=== PATIENT | female | born 1970 | race Caucasian/White ===

== ENCOUNTER 2020-06-08 15:32 | Inpatient (IN) | payer MEDICAID, OTHER ==
[~2020-06-08] VITALS: Ht 162.6 cm; Wt 99.8 kg
--- NOTE | 2020-06-08 15:55 | NUR ---
BIB FROM [facility] TO BED BED 7. AAOX4. NOT IN RESP DISTRESS, BREATHING EVEN AND UNLABORED. BROUGHT IN FOR WEAKNESS. NO NEURO DEFICIT NOTED. PER EMS, PT IS ON HOSPICE. AWAITING MD FOR EVAL.
--- NOTE | 2020-06-08 16:27 | NUR ---
SPOKE WITH SAM, CAREGIVER AT THE [facility] BUT UNABLE TO GIVEN ANY INFORMATION BECAUSE SHE WAS JUST A RELIEF CAREGIVER AND DOES NOT KNOWN WHAT IS GOING ON BECAUSE THE HOSPICE NURSE IS THE ONE WHO SPOKE WITH THE INTAKE COUNSELOR. ALSO CALLED AND SPOKE WITH THE KUSH AND VERBALIZED THAT SHE DID NOT KNOW THAT HER MOTHER IS BEING ADMITTED TO HOSPICE. DAUGHTER WANT FULL TREATMENT FOR HER MOTHER.
--- NOTE | 2020-06-08 16:28 | NUR ---
CAL JACKSON (AIDEEMIAH) [phone]
--- NOTE | 2020-06-08 16:28 | NUR ---
SPOKE WITH DEEPIKA OVER THER PHONE
--- NOTE | 2020-06-08 16:52 | NUR ---
PT TO CT ON SUKHJINDER
[2020-06-08] MEDS ORDERED: IV NS 0.9% 1,000 ML BAG IV ONE (17:00)
[2020-06-08 18:12] LABS: BASOPHILS % (AUTO) 0.6 % (0.0-2.0); EOSINOPHILS % (AUTO) 0.2 % (0.0-6.0); LYMPHOCYTES # (AUTO) 0.6 /CMM (0.8-4.8); LYMPHOCYTES % (AUTO) 19.9 % (20.0-44.0); MEAN CORPUSCULAR HGB CONC 33 g/dl (31.0-36.0); MEAN CORPUSCULAR VOLUME 76 fL (82-100); MONOCYTES # (AUTO) 0.1 /CMM (0.1-1.30); MONOCYTES % (AUTO) 2.2 % (2.0-12.0); NEUTROPHILS # (AUTO) 2.3 /CMM (1.8-8.9); NEUTROPHILS % (AUTO) 77.1 % (43.0-81.0); PLATELET COUNT (AUTO) 178 /CMM (150-450); RED BLOOD CELL COUNT(AUTO) 1.06 MIL/uL (4.0-5.2)
[2020-06-08 18:16] LABS: HEMATOCRIT 8 % (33-45); HEMOGLOBIN 2.6 g/dL (11.5-14.8)
--- NOTE | 2020-06-08 18:20 | NUR ---
pt verbalized that she feel short of breath. o2 sat noted @ 98%. placed on 02 via nc @ 2lpm for hgd 2.6
[2020-06-08 18:23] LABS: CALCIUM, SERUM 8.2 mg/dL (8.5-10.1); CARBON DIOXIDE 22 mmol/L (21-32); CHLORIDE 100 mmol/L (98-107); CREATININE 1.3 mg/dL (0.6-1.3); GLUCOSE 215 mg/dL (74-106); SODIUM SERUM 134 mmol/L (136-145); UREA NITROGEN, BLOOD 20 mg/dL (7-18)
[2020-06-08 18:33] LABS: ALANINE AMINOTRANSFERASE 19 U/L (12-78); ALBUMIN 2.2 g/dL (3.4-5.0); ALKALINE PHOSPHATASE 83 U/L (46-116); ASPARTATE AMINOTRANSFERASE 25 U/L (15-37); BILIRUBIN,DIRECT 0.1 mg/dL (0.0-0.2); BILIRUBIN,TOTAL 0.1 mg/dL (0.2-1.0); TOTAL PROTEIN, SERUM 6.6 g/dL (6.4-8.2)
--- NOTE | 2020-06-08 19:03 | NUR ---
PER PT DOESNT RECALL HER MEDICATIONS, CALLED [facility] [phone] LEFT VOICEMAIL, PER PT SHE LIVES IN A [facility] AND CARE AT [address] [place] [address]
[2020-06-08] MEDS ORDERED: PIPERACILLIN /TAZOBACTAM 3.375 G in IV D5W 50 ML IV ONE (19:30)
[2020-06-08] MEDS ORDERED: PIPERACILLIN /TAZOBACTAM 3.375 G VIAL IV ONE (19:56)
--- NOTE | 2020-06-08 20:11 | NUR ---
covid swab done and send to lab
--- NOTE | 2020-06-08 20:18 | NUR ---
consent for blood transfusion obtained from pt
[2020-06-08] MEDS ORDERED: MAGNESIUM HYDROXIDE 30 ML UDC PO PRN (21:00)
[2020-06-08] MEDS ORDERED: ONDANSETRON HCL/PF 4 MG/2 ML VIAL IVP PRN (21:00)
[2020-06-08] MEDS ORDERED: Z GUARD REMEDY 2 OZ OINT TP PRN (21:00)
[2020-06-08] MEDS ORDERED: ZOLPIDEM TARTRATE 5 MG TABLET PO PRN (21:00)
[2020-06-08 21:34] LABS: LYMPHOCYTES % (MANUAL) 19 % (16-48); MONOCYTES % (MANUAL) 1 % (0-11.0); NEUTROPHILS % (MANUAL) 80 (42-76)
--- NOTE | 2020-06-08 22:03 | NUR ---
BLOOD TRANSFUSION STARTED
--- NOTE | 2020-06-08 22:58 | NUR ---
report given to MARY Beasley for carlos
[2020-06-08 23:00] VITALS: BP 130/70
--- NOTE | 2020-06-08 23:00 | NUR ---
HIV COUNSELORDENTAL LAB TECHNICIAN NOTE ADMITTED A PT WITH ADMITTING DIAGNOSIS OF ACUTE ANEMIA. PAST MEDICAL HISTORY OF HTN, UNSPECIFIED PSYCHIATRIC DISORDER, OVARIAN CANCER AND CURRENTLY ON CHEMO THERAPY. PT PATIENT LAST TREATMENT WAS Friday06/02/2020. FULL CODE STATUS. NKDA. ALERT AND ORIENTED X4. BREATHING EVEN AND UNLABORED WITH NO ACUTE DISTRESS NOTED ON 2LPM OF OXYGEN VIA NC. DENIES ANY PAIN OR DISCOMFORT. LEFT AC 18G NOTED . RECEIVED PT FROM ER WITH 1UNIT OF BLOOD O POSITIVE INFUSING. NO ASE NOTED. BELONGINGS INVENTORY COMPLETED. KEPT CLEAN AND DRY. ALL NEEDS RENDERED. CALL LIGHT WITHIN REACH. WILL CONTINUE TO MONITOR.
--- NOTE | 2020-06-08 23:05 | NUR ---
pt transported to unit on gurney with EMT and RN at bedside w/ ACLS protocol. NAD noted during transport.
--- NOTE | 2020-06-08 23:20 | NUR ---
record label intern note 1 unit of blood infused. pt awake a/o x3. breathing even and unlabored no sob or acute distress noted. denies any pain or discomfort. will continue to monitor.
[2020-06-09] VITALS (30 sets, daily range): BP systolic 100–132; BP diastolic 52–88
--- NOTE | 2020-06-09 02:01 | NUR ---
public safety telecommunicator note report given to ning. pt in bed sleeping . breathing even and unlabored with no sob or acute distress noted. bed in lowest position. call light within reach. all needs rendered.
--- NOTE | 2020-06-09 03:20 | NUR ---
RN NOTE BLOOD TRANSFUSION STARTED. WLLL CONT. TO MONITOR PT.
[2020-06-09] MEDS: MAG HYDROX/AL HYDROX/SIMETH 30 ML UDC PO PRN (04:13)
[2020-06-09] MEDS: ACETAMINOPHEN 325 MG TABLET PO PRN (04:14)
--- NOTE | 2020-06-09 07:26 | NUR ---
RN NOTES STARTED BLOOD TRANSFUSION
--- NOTE | 2020-06-09 08:00 | NUR ---
RN OPENING NOTE RECEIVED PT IN BED . PT PATIENT LAST TREATMENT OF CANCER WAS Friday06/02/2020. FULL CODE STATUS. NKDA. ALERT AND ORIENTED X4. BREATHING EVEN AND UNLABORED WITH NO ACUTE DISTRESS NOTED ON 2LPM OF OXYGEN VIA NC. DENIES ANY PAIN OR DISCOMFORT. LEFT AC 18G NOTED INTACT, NO S/S OF INFILTRATION AND INFECTION NOTED .RECEIVED ORDER OF BLOOD UNIT 1.SAFETY MEASUREMENTS ARE IMPLEMENTED PER HOSPITAL POLICY. BED IS IN THE LOWEST POSITION. CALL LIGHT WITHIN REACH. WILL CONTINUE TO MONITOR.
--- NOTE | 2020-06-09 08:00 | NUR ---
RN NOTES NO TRANSFUSION REACTION VS WNL
--- NOTE | 2020-06-09 12:00 | NUR ---
RN NOTES PT IS IN PAIN IN THE LOWER ABD. GAVE HER NORCO
[2020-06-09] MEDS ORDERED: COGENTIN PO (12:05)
[2020-06-09] MEDS ORDERED: IBUP-1953 PO (12:05)
[2020-06-09] MEDS ORDERED: DOCU-141 PO (12:05)
[2020-06-09] MEDS ORDERED: QUET400T PO (12:05)
[2020-06-09] MEDS ORDERED: APIX5TAB4 PO (12:05)
[2020-06-09] MEDS: HYDROCODONE/APAP 5/325MG TABLET PO PRN ×2 (12:06→22:59)
[2020-06-09 12:38] LABS: HEMOGLOBIN 6.2 g/dL (11.5-14.8)
[2020-06-09 12:42] LABS: CALCIUM, SERUM 8.1 mg/dL (8.5-10.1); CREATININE 1.2 mg/dL (0.6-1.3); MAGNESIUM 2.2 mg/dL (1.8-2.4); PHOSPHORUS 3.1 mg/dL (2.5-4.9); POTASSIUM 3.6 mmol/L (3.5-5.1)
[2020-06-09 12:43] LABS: IRON, SERUM 19 ug/dl (50-175); TOTAL IRON BINDING CAPACITY 238 ug/dl (250-450)
--- NOTE | 2020-06-09 12:45 | NUR ---
RN NOTES DR ORDER ANOTHER 1 UNIT OF BLOOD
[2020-06-09 12:48] LABS: BASOPHILS % (AUTO) 0.4 % (0.0-2.0); EOSINOPHILS % (AUTO) 0.7 % (0.0-6.0); LYMPHOCYTES # (AUTO) 0.8 /CMM (0.8-4.8); LYMPHOCYTES % (AUTO) 22.4 % (20.0-44.0); MEAN CORPUSCULAR HGB CONC 34 g/dl (31.0-36.0); MEAN CORPUSCULAR VOLUME 86 fL (82-100); MONOCYTES # (AUTO) 0.1 /CMM (0.1-1.30); MONOCYTES % (AUTO) 3.3 % (2.0-12.0); NEUTROPHILS # (AUTO) 2.6 /CMM (1.8-8.9); NEUTROPHILS % (AUTO) 73.2 % (43.0-81.0); PLATELET COUNT (AUTO) 212 /CMM (150-450); RED BLOOD CELL COUNT(AUTO) 2.19 MIL/uL (4.0-5.2); WHITE BLOOD COUNT (AUTO) 3.6 K/uL (4.3-11.0)
--- NOTE | 2020-06-09 12:48 | NUR ---
RN NOTES DOC ORDERED DILAUDID 1MG IV Q4 HRS
--- NOTE | 2020-06-09 12:48 | NUR ---
RN NOTES PT IS STILL IN PAIN INFORMED DOC
--- NOTE | 2020-06-09 12:49 | NUR ---
RN NOTES NOTED BLOOD IN THE STOOL
[2020-06-09 12:50] LABS: HEMATOCRIT 19 % (33-45); HEMOGLOBIN 6.3 g/dL (11.5-14.8)
[2020-06-09 12:58] LABS: FERRITIN 70 ng/mL (8-388)
[2020-06-09] MEDS ORDERED: INFLUENZA VACCINE 2020-21 0.5 ML DISP.SYRIN IM ONE (13:00)
[2020-06-09] MEDS ORDERED: PNEUMOCOCCAL 23-VAL P-SAC VAC 0.5 ML VIAL SQ ONE (13:00)
[2020-06-09 13:03] LABS: D-DIMER 20.13 mg/L(FEU (0.17-0.50)
[2020-06-09] MEDS: HYDROMORPHONE 1 MG/1 ML DISP.SYRIN IV PRN (13:24)
[2020-06-09 13:44] LABS: LYMPHOCYTES % (MANUAL) 26 % (16-48); MONOCYTES % (MANUAL) 1 % (0-11.0); NEUTROPHILS % (MANUAL) 73 (42-76)
--- NOTE | 2020-06-09 14:06 | NUR ---
SW was contacted by Operator Electronic Warfare MARY Medina for a family welfare social work professor consult to help assist in finding placement for this patient. Patient is a 50-year-old female. Patient is alert and oriented x4. Patient presented to [facility] ED on 06/08 for weakness. Patient is currently on COVID precautions. SW conducted assessment via hospital phone. Patient confirmed that she is from a board and care. Patient reported that she had been at a senior living facility prior to the board and care. Patient reported that she is currently receiving $1,000 a month in social security income. Patient reported that she was in pain and asked this SW to call back if this SW had more questions. SW will follow-up with this patient at a later time. Patient was calm and cooperative throughout assessment. Patients thought process was clear. Patient had some slurred speech and needed redirection. Plan: SW to check with MARY Ahmadi if patient reported a lower pain level for this SW to complete SS assessment. SW to inform Operator Electronic Warfare MARY Medina that this SW could not complete SS assessment and provide information patient did report. SW will remain available for all needs regarding this patient.
--- NOTE | 2020-06-09 14:30 | NUR ---
RN NOTES PICKED UP BLOOD,VERIFYING WITH THE SECOND NURSE
--- NOTE | 2020-06-09 15:00 | NUR ---
RN NOTES PT HAS NO BLOOD TRANSFUSING REACTION.
--- NOTE | 2020-06-09 16:30 | NUR ---
RN NOTES PT IS NEGATIVE COVID NEGATIVE NEEDS TO BE TRANSFER TO [facility] BED 322 BED 1
--- NOTE | 2020-06-09 16:50 | NUR ---
RN NOTES PT TRANSPORTED BY BED TO UNIT AT THIS TIME WITH ACLS PROTOCOL IN PLACE AND ONGOING BLOOD TRANSFUSION. BEDSIDE REPORT RECEIVED WAS GIVEN TO TAMI
--- NOTE | 2020-06-09 16:50 | NUR ---
RN NOTES GAVE REPORT TO EMAKUELET ON THE BED SITE
--- NOTE | 2020-06-09 17:00 | NUR ---
PT TRANSPORTED BY BED TO UNIT AT THIS TIME WITH ACLS PROTOCOL IN PLACE AND ONGOING BLOOD TRANSFUSION. BEDSIDE REPORT RECEIVED FROM MARY MARTINEZ. WILL CONTINUE TO MONITOR
--- NOTE | 2020-06-09 18:01 | NUR ---
PT ONGOING BLOOD TRANSFUSION. VS SIGNS, BP 123/68, HR 70, RR 20, T 98.2, SPO2 98%. PT EDUCATION PROVIDED TO REPORT ADVERSE REACTIONS OF TRANSFUSION LIKE BACK PAIN, CHILLS, HIVES, ITCHES AND FEVER. NO C/O OF ANY TRANSFUSION REACTION AT THIS TIME. WILL CONTINUE TO MONITOR
--- NOTE | 2020-06-09 18:03 | NUR ---
BLOOD TRANSFUSION COMPLETED AT THIS TIME. VS SIGNS, BP 115/65, HR 63, RR 18, T 97.92, SPO2 96%. NO C/O OF ANY TRANSFUSION REACTION (BACK PAIN, CHILLS, HIVES, ITCHES AND FEVER) AT THIS TIME. WILL CONTINUE TO MONITOR
--- NOTE | 2020-06-09 19:19 | NUR ---
MESH MAN CLOSING NOTES PT RESTING IN BED AT THIS. PT REMAINED STABLE THROUGHOUT SHIFT. PT KEPT CLEAN AND DRY. ALL CARE, NEEDS, MEDICATION AND TREATMENT ADMINISTERED ANTICIPATED PER ORDER. SAFETY PRECAUTION IN PLACE AND MAINTAINED AT ALL TIMES. BED IN LOWEST LOCKED POSITION, HOB ELEVATED, SIDE RAILS UP X 2, CALL LIGHT AND TABLE WITHIN REACH. WILL ENDORSE TO SCRIPT WORKER NURSE FOR DOMINGO
--- NOTE | 2020-06-09 19:41 | NUR ---
RN OPENING NOTES PATIENT RECEIVED RESTING IN BED, A/O X 3. ON 2L OF O2 WITH BREATHING EVEN AND UNLABORED, NO SOB NOTED. NO SIGNS OF ACUTE DISTRESS. TELE MONITOR READING SR WITH PVC'S. IV LOCATED ON LAC #18 SL PATENT AN INTACT. SAFETY PRECAUTIONS IN PLACE WITH BED IN LOWEST POSITION, CALL LIGHT WITHIN REACH, BREAKS ON, SIDE RAILS UP. WILL CONTINUE TO MONITOR THROUGHOUT THE NIGHT.
[2020-06-09 20:39] LABS: HEMOGLOBIN 6.9 g/dL (11.5-14.8)
--- NOTE | 2020-06-09 21:03 | NUR ---
RN NOTES NOTIFIED ELECTRONIC PUBLICATIONS SPECIALIST YANN ON PATIENTS HGB OF 6.9 AND HCT 21- TRENDING TOWARDS GOAL. ORDERED FOR H&H AFTER ONE HOUR OF TRANSFUSION FOR GOAL TO BE <8.
--- NOTE | 2020-06-09 23:02 | NUR ---
RN NOTES PATIENT COMPLAINING OF ABDOMINAL PAIN 7/10 AN ACHING DULL PAIN. PRN NORCO ADMINISTERED.
[2020-06-10] VITALS (7 sets, daily range): BP systolic 114–134; BP diastolic 54–73
--- NOTE | 2020-06-10 01:11 | NUR ---
RN NOTES REPORT GIVEN TO MARY MOROCHO FOR DOMINGO.
--- NOTE | 2020-06-10 01:37 | NUR ---
RN NOTES 1 UNIT OF PRBC TRANSFUSED. NO REACTION NOTED. NO SIGNS OF ACUTE DISTRESS. WILL MONITOR H&H.
--- NOTE | 2020-06-10 01:45 | NUR ---
RN NOTES RECEIVED REPORT FROM MARY ELLER. STATUS POST 1 UNIT OF PRBC TRANSFUSED AT 0135. NO REACTION NOTED. NO SIGNS OF ACUTE RESPIRATORY OR CARDIAC DISTRESS NOTED.WILL MONITOR H&H. RE CHECK H/H AT 0300. ALL NEEDS ANTICIPATED. PATIENT IS CALM RESTING COMFORTABLY. WILL CONTINUE TO MONITOR ACCORDINGLY.
[2020-06-10 03:31] LABS: HEMOGLOBIN 8.3 g/dL (11.5-14.8)
--- NOTE | 2020-06-10 04:50 | NUR ---
RN NOTES PER CONSTRUCTION MGR, NOTED BLOODY URINE OUTPUT LIKE MENSTRUAL PERIOD IN CONSISTENCY X1 APPROXIMATELY 50ML. WILL CONTINUE TO MONITOR.
[2020-06-10] MEDS: HYDROMORPHONE 1 MG/1 ML DISP.SYRIN IV PRN (06:35)
--- NOTE | 2020-06-10 06:40 | NUR ---
RN NOTES PATIENT COMPLAINED OF SEVERE ABDOMINAL PAIN 10/10 AND FEELING LIKE THROWING UP. DILAUDID 1MG IV AND ZOFRAN 4MG IV GIVEN FOR NAUSEA AND VOMITING PRN ORDER. WILL CONTINUE TO MONITOR.
--- NOTE | 2020-06-10 06:46 | NUR ---
XEROX MACHINE MECHANIC NOTES ALL NEEDS ATTENDED AND MET, HGB LEVEL 8.3 HCT 25. SAFETY MEASURES IN PLACE, STATUS POST BLOOD TRANSFUSION 1 UNIT PACKED RED BLEED CELLS AT 06/10/20 [address]139. SAFETY MEASURES IN PLACE, ALL NEEDS ANTICIPATED. WILL ENDORSE TO AM NURSE FOR CONTINUITY OF CARE.
--- NOTE | 2020-06-10 06:49 | NUR ---
RED LEAD BURNER NOTES CURRENT TELE MONITOR READS SINUS RHYTHM 61.
--- NOTE | 2020-06-10 07:55 | NUR ---
Alfonso From CT spoke with RN Shanon in regards to CT procedure with IV Contrast. Please call Radiology at ext. [phone] when consent is given. Thank you.
--- NOTE | 2020-06-10 08:00 | NUR ---
RECEIVED PT. IN AM ALERT AND ORIENTED X2-3.SEEMS DEPRESSED,C/O SOME NAUSEA,NO EMESIS.
[2020-06-10 08:06] LABS: IMMUNOGLOBULIN A, SERUM 217 mg/dL (87-352); IMMUNOGLOBULIN G, SERUM 1151 mg/dL (586-1602); IMMUNOGLOBULIN M, SERUM 26 mg/dL (26-217)
[2020-06-10] MEDS ORDERED: PEG 3350/NA SULF,BICARB,CL/KCL 4,000 ML BOTTLE PO ONE (10:30)
[2020-06-10] MEDS ORDERED: APIXABAN 5 MG TABLET PO SCH (11:00)
[2020-06-10] MEDS: QUETIAPINE FUMARATE 100 MG TABLET PO SCH ×2 (13:29→17:00)
[2020-06-10] MEDS: BENZTROPINE MESYLATE (1 MG) 1 MG TABLET PO SCH (13:29)
[2020-06-10] MEDS ORDERED: CT SWABBABLE VALVE TRANS SET 1 EA INFUS.SET MC ONE (15:07)
[2020-06-10] MEDS ORDERED: IOHEXOL-300 100 ML VIAL IV ONE (15:07)
[2020-06-10] MEDS ORDERED: IV NS 0.9% 250 ML IV ONE (15:07)
--- NOTE | 2020-06-10 15:40 | NUR ---
Attempted CT scan @1515. Pt is confused and altered, not following command. Pt tried getting out of CT scan table multiple times. Pt refused CT scan. RN is aware.
[2020-06-10] MEDS ORDERED: METO50TA16 PO (16:05)
[2020-06-10] MEDS ORDERED: PRAV40TA3 PO (16:05)
[2020-06-10] MEDS ORDERED: GLIM4TAB37 PO (16:05)
[2020-06-10] MEDS ORDERED: BENZ1TAB7 PO (16:05)
[2020-06-10] MEDS ORDERED: LOSA50TA39 PO (16:05)
[2020-06-10] MEDS ORDERED: FERR325T28 PO (16:05)
[2020-06-10] MEDS ORDERED: IBUP-1953 PO (16:05)
[2020-06-10] MEDS ORDERED: TRIA1CAP6 PO (16:05)
[2020-06-10] MEDS ORDERED: OMEP20TA5 PO (16:05)
[2020-06-10] MEDS ORDERED: QUET200T PO (16:05)
--- NOTE | 2020-06-10 17:30 | NUR ---
CALLED DR. WILSON REGARDING PASSING OF BLOOD CLOTS VAGINALLY.ADDITIONALLY TOLD HIM FAMILY CALLING WITH UPDATED MED LIST THAT HE NEEDS TO CHECK IT.
--- NOTE | 2020-06-10 19:13 | NUR ---
REFUSED CAT SCAN.DR. HOUGH REQUESTING GO AMELIA STARTED EARLIER.RN INFORMED HIM PT. WITH NAUSEA.GO AMELIA DC'D.PLANS TO DO EGD TOMORROW,AT THIS TIME PT. TOO SLEEPY TO SIGN CONSENT.
--- NOTE | 2020-06-10 20:00 | NUR ---
RN NOTES NOTICED PT. HAS VAGINAL BLEEDING WITH SMALL CLOTS, CHARGE NURSE MADE AWARE, DAYSHIFT NURSE INFORMED ME THAT MD IS AWARE, WILL CONTINUE TO MONITOR
--- NOTE | 2020-06-10 20:31 | NUR ---
RN NOTES RECEIVED PT. AWAKE ON BED, A/OX2, SR ON TELE MONITOR WITH PV'S, HR-92, NOT IN DISTRESS, DENIES PAIN, BED IN LOCKED POSITION, CALL LIGHT WITHIN REACH, [id number], CONTINUE TO MONITOR Addendum: 06/10/20 at 2033 by TONJA VALDEZ RN RIGHT TIME 1999
--- NOTE | 2020-06-10 21:45 | NUR ---
RN NOTES SPOKE TO PATIENTS' NIECE MERRY AND GOT A TELEPHONE CONSENT FOR EGD FOR TOMORROW, WITNESSED BY THE CHARGE NURSE , PER PATIENT'S NIECE SHE SPOKE TO OUR INTERNAL COMMUNICATIONS MANAGER AND INFORMED THEM NOT TO SEND BACK HER AUNT TO HER BOARD AND CARE, CHARGE NURSE MADE AWARE
--- NOTE | 2020-06-10 22:45 | NUR ---
RN NOTES CALLED PT'S LEE SOUSA AND GOT A TELEPHONE CONSENT FOR ANAESTHESIA, WITNESSED BY ANOTHER RN SMITA
[2020-06-11] VITALS: BP 125/61
[2020-06-11] MEDS ORDERED: SOD FERRIC GLUC 62.5 MG/5 ML AMPUL IV ONE (00:49)
[2020-06-11] MEDS: SOD FERRIC GLUC 125 MG in IV NS 0.9% 100 ML IV SCH ×2 (01:37→14:27)
[2020-06-11 04:00] VITALS: BP_SYST 114; BP_SYST 125; BP_DIAS 61; BP_DIAS 66
--- NOTE | 2020-06-11 06:47 | NUR ---
RN NOTES AWAKE, REFUSED BLOOD DRAW, ASK THE INSTRUCTIONAL MATERIALS DIRECTOR TO COME BACK AROUND 0700 - 0800AM, CHARGE NURSE MADE AWARE, MORNING CARE RENDERED, [id number], PT. NEEDS ATTENDED
--- NOTE | 2020-06-11 07:30 | NUR ---
MASH FILTER PRESS OPERATOR OPENING NOTES BEDSIDE ENDORSEMENT DONE. PATIENT IS IN BED SLEEPING, ABLE TO BE AWAKENED. A/O 1-2, ABLE TO MAKE NEEDS KNOWN. BREATHING EVEN AND UNLABORED, TOLERATING ROOM AIR, NO RESPIRATORY DISTRESS NOTED. ON TELE MONITORING W/ READING OF SR, HR IN THE 80'S. IV LINE ON LAC #18, INTACT AND PATENT. CURRENTLY NPO EXCEPT MEDS FOR SCHEDULED PROCEDURE TODAY. SAFETY PRECAUTIONS IN PLACE: BED LOCKED AND ON LOWEST POSITION, SR UP X2, CALL LIGHT KEPT WITHIN REACH. WILL CONTINUE TO MONITOR.
[2020-06-11 08:00] VITALS: BP 118/73
[2020-06-11 08:30] LABS: CALCIUM, SERUM 8.6 mg/dL (8.5-10.1); CREATININE 0.9 mg/dL (0.6-1.3); POTASSIUM 4.4 mmol/L (3.5-5.1)
[2020-06-11] MEDS: DOCUSATE SODIUM 100 MG CAPSULE PO SCH (08:42)
[2020-06-11] MEDS: QUETIAPINE FUMARATE 100 MG TABLET PO SCH ×2 (08:42→17:00)
[2020-06-11] MEDS: BENZTROPINE MESYLATE (1 MG) 1 MG TABLET PO SCH (08:42)
--- NOTE | 2020-06-11 10:57 | NUR ---
RN NOTES PER PHLEBOTOMISTS, PATIENT REFUSED BLOOD DRAW X3; EXPLAINED PROCEDURE BUT PATIENT STILL REFUSED. PER LAB, BLOOD DRAW WILL BE CANCELLED AT THIS TIME.
--- NOTE | 2020-06-11 12:02 | NUR ---
RN GUILLERMO ZAPATA, NURSING WAITER/WAITRESS FIRST CLASS, CALLED AND SAID THAT PATIENT'S EGD IS RE-SCHEDULED FOR TOMORROW 06/12/[address] HOUGH; PT OK TO EAT AT THIS TIME BUT WILL BE NPO POST MIDNIGHT.
--- NOTE | 2020-06-11 12:09 | NUR ---
Radiology attempted to do CT scan at 1200, but patient refused to do exam until she locates her [place] ID. Please call ext. [phone] when ready for exam. 2nd attempt.
--- NOTE | 2020-06-11 13:37 | NUR ---
RN NOTES LEFT MESSAGE TO KWESI, PT'S NIECE, REGARDING RESCHEDULED EGD PROCEDURE FOR TOMORROW.
[2020-06-11] MEDS: IBUPROFEN 400 MG TABLET PO PRN ×2 (15:24→23:46)
[2020-06-11 16:00] VITALS: BP 159/61
--- NOTE | 2020-06-11 18:55 | NUR ---
CONTENT DESIGNER CLOSING NOTES PATIENT IS IN BED, AWAKE AND VERBALLY RESPONSIVE. A/O 1-2, ABLE TO MAKE NEEDS KNOWN. BREATHING EVEN AND UNLABORED, TOLERATING ROOM AIR, NO RESPIRATORY DISTRESS NOTED. ON TELE MONITORING W/ READING OF SR, HR IN THE 80'S. IV LINE ON LAC #18, INTACT AND PATENT. RESCHEDULED EGD PROCEDURE FOR TOMORROW. PT IS NPO EXCEPT MEDS POST MIDNIGHT 06/12/3030. SAFETY PRECAUTIONS MAINTAINED: BED LOCKED AND ON LOWEST POSITION, SR UP X2, CALL LIGHT KEPT WITHIN REACH. WILL ENDORSE TO PATIENT CARE REPRESENTATIVE NURSE FOR DOMINGO.
--- NOTE | 2020-06-11 19:35 | NUR ---
RN NOTES RECEIVED PT.AWAKE ON BED, A/OX2 , ST ON TELE MONITOR HR-103, NOT IN DISTRESS, DENIES PAIN, NO SOB, CALL LIGHT WITHIN REACH, SIDERAILSUPX2, CONTINUE TO MONITOR
--- NOTE | 2020-06-11 19:41 | NUR ---
RN NOTES SPOKE W/ VERONIQUE, CONSTRUCTION ASSISTANT FOR DR. CARMONA , AND INFORMED ABOUT REQUEST OF PATIENT'S MEDICAL RECORDS; STATED THAT HE WILL INFORM MD AND WILL FAX MEDICAL RECORDS TO [facility].
[2020-06-11 20:00] VITALS: BP 138/80
[2020-06-11 20:09] VITALS: BP 138/80
--- NOTE | 2020-06-11 20:30 | NUR ---
RN NOTES NOTICED PT'S STILL HAVING VAGINAL BLEEDING WITH SMALL CLOTS- MD IS AWARE, WILL CONTINUE TO MONITOR
--- NOTE | 2020-06-11 22:45 | NUR ---
RN NOTES CALLED PT'S NIECE MERRY BECAUSE PT'S DOESN'T WANT TO LISTEN TO US, SHE WANTS TO REMOVE HER IV ACCESS AND SHE'S A HARD STICK AND SHE'S GOING TO HAVE AN EGD TOMORROW MORNING .. PT'S NIECE TALKED TO THE PT'S AND EXPLAINED THE IMPORTANCE OF NOT REMOVING HER IV ACCESS. PT'S AGREED NOT REMOVING HER IV ACCESS, WILL CONTINUE TO MONITOR
[2020-06-12] VITALS: BP 104/66
[2020-06-12 00:27] VITALS: BP 104/66
[2020-06-12 04:00] VITALS: BP 120/60
[2020-06-12 04:31] VITALS: BP 120/60
[2020-06-12] MEDS ORDERED: ANESTHESIA TRAY IN PYXIS 1 EA TRAY MC ONE (06:21)
[2020-06-12] MEDS ORDERED: FENTANYL PF 100MCG/2ML AMPUL ONE (06:23)
--- NOTE | 2020-06-12 06:35 | NUR ---
RN NOTES CALLED DR. CARMONA OFFICE AND LEFT A MESSAGE TO THE EXCHANGE THAT WERE REQUESTING A PREVIOUS RECORD FROM THEIR OFFICE, ENDORSED TO DAYSHIFT NURSE TO FOLLOW UP ABOUT IT AND IF THEY CN TALK TO THE DOCTOR REGARDING PT'S EGD WELL
--- NOTE | 2020-06-12 06:45 | NUR ---
RN NOTES OR STFF BUTTON CUTTING MACHINE OPERATOR THE PT FOR EGD AND WAS TRYING TO CALL PT'S OWN ONCOLOGIST BUT NOBODY'S ANSWERING, PT. IS NOT ON DISTRESS, DENIES PAIN, PT.NEEDS ATTENDED
[2020-06-12] MEDS: IBUPROFEN 400 MG TABLET PO PRN (07:09)
--- NOTE | 2020-06-12 07:38 | NUR ---
JIG AND FIXTURE REPAIRER NOTES RECEIVED REPORT FROM NIGHTSHIFT NURSE. PATIENT RECEIVED FROM OR NURSE INFORMED ABOUT BIOPSY OF STOMACH TO RULE OUT H. PYLORI AND DUODENAL ULCERS. PATIENT ALERT AND ORIENTED X 2. ON ROOM AIR WITH NO SIGNS OF RESPIRATORY DISTRESS AT THIS TIME, WITH EVEN NON-LABORED BREATHING, AND NO SOB NOTED. IV ACCESS INTACT AND PATENT. SKIN WARM AND DRY TO TOUCH. SAFETY PRECAUTIONS IMPLEMENTED WITH BED LOCKED, BED IN THE LOWEST POSITION, BILATERAL SIDE RAILS UP, BED ALARM ON, AND CALL LIGHT WITHIN EASY REACH OF THE PATIENT. WILL CONTINUE TO MONITOR PATIENT.
[2020-06-12 08:00] VITALS: BP 122/61
[2020-06-12] MEDS: PANTOPRAZOLE 40 MG TABLET.DR PO SCH (08:49)
[2020-06-12] MEDS: DOCUSATE SODIUM 100 MG CAPSULE PO SCH (08:50)
[2020-06-12] MEDS: QUETIAPINE FUMARATE 100 MG TABLET PO SCH ×2 (08:50→16:50)
[2020-06-12] MEDS: BENZTROPINE MESYLATE (1 MG) 1 MG TABLET PO SCH (08:50)
[2020-06-12] MEDS ORDERED: PANT40TA2 PO (10:09)
--- NOTE | 2020-06-12 11:00 | NUR ---
BULLDOZER ENGINEER NOTES OBTAIN CONSENT FROM PATIENT'S NIECE, MERRY SANTIAGO , REGARDING AUTHORIZATION TO OBTAIN PATIENT'S PRIMARY ONCOLOGIST FOR PAST MEDICAL RECORDS AND PAST PATHOLOGY REPORTS, SPOKE WITH KOLBY AND FAXED AUTHORIZATION FORM TO . WILL FOLLOW UP.
--- NOTE | 2020-06-12 13:03 | NUR ---
CHEYANNE received a call from Jessika Garcia patient's daughter. Jessika expressed concerns regarding patient's placement. CHEYANNE informed Jessika that [facility] Case Management team can provide an update regarding placement. Jessika also expressed interest regarding conservatorship. CHEYANNE provided education and resource over the phone to Jessika. CHEYANNE remains available for all needs regarding this patient.
[2020-06-12] MEDS ORDERED: SOD FERRIC GLUC 125 MG in IV NS 0.9% 100 ML IV SCH (14:00)
--- NOTE | 2020-06-12 14:05 | NUR ---
WAREHOUSE DELIVERY DRIVER NOTES SPOKE WITH ALEXANDER FROM MEDICAL RECORDS , STATES SHE RECEIVED AUTHORIZATION FORM AND WILL SEND OUT MEDICAL RECORDS.
[2020-06-12] MEDS: SOD FERRIC GLUC 125 MG in IV NS 0.9% 100 ML IV SCH (15:04)
[2020-06-12 16:25] LABS: *SPE A/G RATIO 0.6 (0.7-1.7); *SPE ALBUMIN 2.3 g/dL (2.9-4.4); *SPE ALPHA-1-GLOBULIN 0.4 g/dL (0.0-0.4); *SPE ALPHA-2-GLOBULIN 1.2 g/dL (0.4-1.0); *SPE BETA GLOBULIN 1.1 g/dL (0.7-1.3); *SPE GLOBULIN, TOTAL 3.8 g/dL (2.2-3.9); *SPE M-SPIKE Not Observed g/dL (Not Observed)
[2020-06-12 17:11] LABS: BASOPHILS % (AUTO) 0.5 % (0.0-2.0); EOSINOPHILS % (AUTO) 1.4 % (0.0-6.0); HEMATOCRIT 24 % (33-45); HEMOGLOBIN 7.7 g/dL (11.5-14.8); LYMPHOCYTES # (AUTO) 0.2 /CMM (0.8-4.8); LYMPHOCYTES % (AUTO) 15.3 % (20.0-44.0); MEAN CORPUSCULAR HGB CONC 32 g/dl (31.0-36.0); MEAN CORPUSCULAR VOLUME 90 fL (82-100); MONOCYTES # (AUTO) 0.3 /CMM (0.1-1.30); MONOCYTES % (AUTO) 17.2 % (2.0-12.0); NEUTROPHILS % (AUTO) 65.6 % (43.0-81.0); PLATELET COUNT (AUTO) 171 /CMM (150-450); RED BLOOD CELL COUNT(AUTO) 2.68 MIL/uL (4.0-5.2)
[2020-06-12 17:17] LABS: WHITE BLOOD COUNT (AUTO) 1.5 K/uL (4.3-11.0)
--- NOTE | 2020-06-12 17:30 | NUR ---
COMMERCIAL LOAN COLLECTION OFFICER NOTES LAB REPORTED WBC LAB 1.5, INFORMED HOSPITALIST DR. WORKMAN AND PRIETO WILEY NP. PER DR. WORKMAN ORDERED CBC, TOMORROW MORNING, AND TO HOLD DISCHARGE ORDERS. WILL CARRY OUT ORDERS AND CONTINUE TO MONITOR PATIENT.
[2020-06-12 17:33] LABS: ALBUMIN 2.4 g/dL (3.4-5.0); BILIRUBIN,TOTAL 0.5 mg/dL (0.2-1.0); CALCIUM, SERUM 8.2 mg/dL (8.5-10.1); POTASSIUM 3.7 mmol/L (3.5-5.1)
--- NOTE | 2020-06-12 18:20 | NUR ---
WOVEN WOOD SHADE ASSEMBLER NOTES PATIENT IN BED, ALERT AND ORIENTED X 2. ON ROOM AIR WITH NO SIGNS OF RESPIRATORY DISTRESS AT THIS TIME, WITH EVEN NON-LABORED BREATHING, AND NO SOB NOTED. ON TRIMMING CUTTER, SINUS TACH, 120. IV ACCESS INTACT AND PATENT. SKIN KEPT CLEAN, WARM AND DRY TO TOUCH. SAFETY PRECAUTIONS IMPLEMENTED WITH BED LOCKED, BED IN THE LOWEST POSITION, BILATERAL SIDE RAILS UP, BED ALARM ON, AND CALL LIGHT WITHIN EASY REACH OF THE PATIENT. WILL ENDORSE PLAN OF CARE TO UPCOMING RN.
[2020-06-12] MEDS ORDERED: CEFEPIME 1 GM VIAL IM SCH (18:30)
[2020-06-12] MEDS: CEFEPIME 2 GM in IV D5W 100 ML IV SCH (18:35)
--- NOTE | 2020-06-12 19:30 | NUR ---
TELE/RN NOTES RECEIVED PATIENT IN BED RESTING. PATIENT IS ALERT AND ORIENTED X 2. PATIENT HAS MILD LABORED BREATHING, RESPIRATIONS AT 30. BREATHING IS EVEN. TELE READING ST 130. PATIENT STATES NO PAIN AT THIS TIME. PATIENT HAS IV ACCESS ON LEFT AC #20G SL. SAFETY MEASURES ARE IN PLACE, BED IS LOCKED AND PLACED IN THE LOW POSITION, SIDE RAILS UP X 2, BED ALARM ON. CALL LIGHT IS WITHIN REACH. WILL MONITOR THROUGH OUT SHIFT.
[2020-06-12 20:00] VITALS: BP_SYST 127; BP_DIAS 73; BP_DIAS 75
[2020-06-12] MEDS: ACETAMINOPHEN 325 MG TABLET PO PRN (21:08)
--- NOTE | 2020-06-12 21:15 | NUR ---
TELE/RN NOTES PATIENT TEMP AT 99.3 F. COOLING MEASURES ARE APPLIED. TYLENOL 650 MG PO GIVEN. BP 127/73, RR 20, HR135. WILL CONTINUE TO MONITOR.
[2020-06-12 21:37] LABS: BAND % (MANUAL) 4 % (0.0-5.0); EOSINOPHILS % (MANUAL) 1 % (0-4); LYMPHOCYTES % (MANUAL) 16 % (16-48); MONOCYTES % (MANUAL) 19 % (0-11.0); NEUTROPHILS % (MANUAL) 60 (42-76)
[2020-06-13] VITALS (12 sets, daily range): BP systolic 100–138; BP diastolic 54–77
[2020-06-13] MEDS: ACETAMINOPHEN 325 MG TABLET PO PRN ×2 (03:40→15:00)
--- NOTE | 2020-06-13 06:55 | NUR ---
TELE/RN NOTES PATIENT IN BED RESTING. PATIENT IS ALERT AND ORIENTED X 2. PATIENT HAS MILD LABORED BREATHING. TELE READING ST 109. PATIENT STATES NO PAIN AT THIS TIME. PATIENT HAS IV ACCESS ON LEFT AC #20G SL. SAFETY MEASURES ARE IN PLACE, BED IS LOCKED AND PLACED IN THE LOW POSITION, SIDE RAILS UP X 2, BED ALARM ON. CALL LIGHT IS WITHIN REACH. WILL ENDORSE TO DAY SHIFT.
[2020-06-13 07:35] LABS: BASOPHILS % (AUTO) 0.6 % (0.0-2.0); EOSINOPHILS % (AUTO) 0.1 % (0.0-6.0); HEMATOCRIT 22 % (33-45); HEMOGLOBIN 7.1 g/dL (11.5-14.8); LYMPHOCYTES # (AUTO) 0.3 /CMM (0.8-4.8); LYMPHOCYTES % (AUTO) 20.5 % (20.0-44.0); MEAN CORPUSCULAR HGB CONC 32 g/dl (31.0-36.0); MEAN CORPUSCULAR VOLUME 88 fL (82-100); MONOCYTES # (AUTO) 0.3 /CMM (0.1-1.30); MONOCYTES % (AUTO) 20.7 % (2.0-12.0); NEUTROPHILS % (AUTO) 58.1 % (43.0-81.0); PLATELET COUNT (AUTO) 140 /CMM (150-450)
--- NOTE | 2020-06-13 08:00 | NUR ---
TELE/RN NOTES PATIENT IN BED RESTING. PATIENT IS ALERT AND ORIENTED X 2. PATIENT HAS MILD LABORED BREATHING. TELE READING ST 101. PATIENT STATES NO PAIN AT THIS TIME. PATIENT HAS IV ACCESS ON LEFT AC #20G SL.PATENT AND FLUSHED WELL SAFETY MEASURES ARE IN PLACE, BED IS LOCKED AND PLACED IN THE LOW POSITION, SIDE RAILS UP X 2, BED ALARM ON. CALL LIGHT IS WITHIN REACH. ABDOMEN SOFT BUT TENDED AND DISTENDED TO TOUCH WILL MONITOR
[2020-06-13 08:26] LABS: WHITE BLOOD COUNT (AUTO) 1.7 K/uL (4.3-11.0)
--- NOTE | 2020-06-13 08:41 | NUR ---
Called and spoke with Libertad HERNANDEZ. PT. is refusing this time and Nurse will notified the ordering doctor.
[2020-06-13] MEDS: DOCUSATE SODIUM 100 MG CAPSULE PO SCH (08:49)
[2020-06-13] MEDS: PANTOPRAZOLE 40 MG TABLET.DR PO SCH (08:49)
[2020-06-13] MEDS: QUETIAPINE FUMARATE 100 MG TABLET PO SCH ×2 (08:49→16:22)
[2020-06-13] MEDS: BENZTROPINE MESYLATE (1 MG) 1 MG TABLET PO SCH (08:49)
[2020-06-13] MEDS: CEFEPIME 2 GM in IV D5W 100 ML IV SCH ×2 (08:50→20:26)
[2020-06-13 09:21] LABS: BAND % (MANUAL) 5 % (0.0-5.0); LYMPHOCYTES % (MANUAL) 39 % (16-48); MONOCYTES % (MANUAL) 1 % (0-11.0)
[2020-06-13 09:22] LABS: NEUTROPHILS % (MANUAL) 55 (42-76)
--- NOTE | 2020-06-13 09:58 | NUR ---
CRANE MAN NOTE PT AT BEDSIDE BUT REFUSED T DO PT THERAPY, OFFERED X2 EXPLAINEDOF IMPORTANCE STILL REFUSING ALSO UA COLLECTED ORDERED
--- NOTE | 2020-06-13 10:40 | NUR ---
SCIENCE TECHNICIANS NOTE PT AT BEDSIDE AGAIN TRYING TO TO DO PT TX , STILL REFUSING ALSO CALLED TO DARYL Bowen NP NOTIFIED ABOUT HG 7.1 STILL VAGINAL BLEEDING WITH 2 PADS CHANGED NO NEW ORDER GIVEN AT THIS TIME
[2020-06-13 11:48] LABS: BILIRUBIN,URINE NEGATIVE (NEGATIVE); BLOOD, URINE MODERATE Ery/uL (NEGATIVE); COLOR,URINE YELLOW (YELLOW); LEUKOCYTE ESTERASE ,URINE MODERATE (NEGATIVE); NITRITE, URINE NEGATIVE (NEGATIVE); PROTEIN,URINE 100 mg/dl (NEGATIVE); UGLUCOSE NEGATIVE (NEGATIVE); UROBILINOGEN,URINE 0.2 EU/dL (0.2)
[2020-06-13 11:51] LABS: BACTERIA,URINE 1+ /HPF (None Seen); URINE AMORPHOUS PHOSPHATES Moderate /HPF (None Seen)
--- NOTE | 2020-06-13 11:56 | NUR ---
FISHERIES INSPECTOR NOTE NIRAJ RN FLOOR WORKER TRANSFER BAY FOR HEMATOLOGY AT BEDSIDE NOTIFIED THAT HG 7.AWARE THAT STILL VAGINAL BLEEDING WITH 2 PADS CHANGED ALSO AWARE WBC TODAY 1.7 WITH ORDER TO TRANSFUSE 1 UNIT PRBC ORDER CARRIED OUT
--- NOTE | 2020-06-13 12:40 | NUR ---
ROSALINA HERNANDEZ NOTE NO BLOOD READY Addendum: 06/13/20 at 1251 by CAT TOMLINSON RN REFUSED TO DO CT CHEST NIRAJ HERNANDEZ PROOFING MACHINE OPERATOR BACTERIOLOGY RESEARCH ASSISTANT NOTIFIED
--- NOTE | 2020-06-13 13:27 | NUR ---
DIRECTOR OPERATIONS BROADCAST NOTE WILL ADMINISTERED RICK FLORES PRIOR BLOOD TRANSFUSION
--- NOTE | 2020-06-13 13:33 | NUR ---
BINDING END STITCHER NOTE DARYL ALMEIDA RN TRANSIT MECHANIC AT BEDSIDE, PATIENT CONDITION UPDATED
[2020-06-13] MEDS: SOD FERRIC GLUC 125 MG in IV NS 0.9% 100 ML IV SCH (13:42)
--- NOTE | 2020-06-13 15:33 | NUR ---
telephone directory deliverer note t 101.o called to Anita Luque rn manpower development specialist manager still wants to transfuse blood transfusion Tylenol 625 mg po given ,will cont to monitor
--- NOTE | 2020-06-13 15:52 | NUR ---
telecommunication equipment repairer note blood transfusion started as ordered at 50 ml per hour ,will monitor closely
--- NOTE | 2020-06-13 18:04 | NUR ---
DRAFTER APPRENTICE NOTE ID RN FLUMER AT BEDSIDE , AWARE THAT EARLIER T 101
--- NOTE | 2020-06-13 18:50 | NUR ---
GRANULIZING MACHINE OPERATOR NOTE BLOOD TRANSFUSION COMPETED, NO ADVERSE REACTION NOTED AT THIS TIME
--- NOTE | 2020-06-13 19:00 | NUR ---
TELE/RN OPENING NOTES: RECEIVED PATIENT IN BED RESTING. PATIENT IS A/OX 2. BREATHING EVEN AND UNLABORED. NO SOB NOTED. NO S/S OF DISTRESS. NO C/O PAIN AT THIS TIME. NO ADVERSE EFFCETS FROM BLOOD TRANSFUSION. TELE READING ST 102. IV ACCESS ON LEFT AC #20G SL.PATENT AND FLUSHED WELL SAFETY MEASURES ARE IN PLACE, BED IS LOCKED AND PLACED IN THE LOW POSITION, SIDE RAILS UP X 2, BED ALARM ON. CALL LIGHT IS WITHIN REACH. WILL CONTINUE TO MONITOR.
--- NOTE | 2020-06-13 20:04 | NUR ---
TELE/RN NOTES: SILVINA SNYDER HIGHWAY LANDSCAPE ARCHITECT (AUTOMATIC FANCY MACHINE OPERATOR) NOTIFIED REGARDING PT'S FREQUENT PVCS AND RUNS VTACH. PT IS STABLE. NO C/O OF CHEST PAIN. VSS. BP: 109/59. HR: 103. ON ROOM AIR, SATURATING 98%. TEMP: 99.1. SILVINA ORDERED STAT EKG. WILL F/U AND CONTINUE TO MONITOR PT.
--- NOTE | 2020-06-13 20:15 | NUR ---
TELE/RN NOTES: RT RINA AT BED SIDE AT THIS TIME FOR STAT EKG.
--- NOTE | 2020-06-13 20:48 | NUR ---
TELE/RN NOTES: STA EKG RESULT RELAYED TO KRISTIAN SNYDER. INFORMED THAT PVCS WERE OCCASIONAL BEFORE BUT IT'S MORE FREQUENT NOW, AND VTACH RUNS ARE NEW ONSET. PER KRISTIAN, "I WILL COME UP AND SEE PT MYSELF". WILL CONTINUE TO MONITOR PT.
[2020-06-13] MEDS: VANCOMYCIN 1.5 GM in IV D5W 500 ML IV SCH (21:01)
[2020-06-13 22:40] LABS: HEMOGLOBIN 7.6 g/dL (11.5-14.8)
--- NOTE | 2020-06-13 22:56 | NUR ---
TELE/RN NOTES: SILVINA SNYDER INFORMED ABOUT H/H LAB DRAW. NOW 7.6 AND 24. NO NEW ORDERS. PT STABLE. NO PVCS AT THIS TIME.
[2020-06-14] VITALS (9 sets, daily range): BP systolic 106–136; BP diastolic 52–83
[2020-06-14] MEDS: ACETAMINOPHEN 325 MG TABLET PO PRN (02:25)
--- NOTE | 2020-06-14 02:25 | NUR ---
TELE/RN NOTES: PT TEMP IS 99.8. ADMINISTERED TYLENOL 650MG ORDERED. PT REFUSES COOLING MEASURES. WILL CONTINUE TO MONITOR.
--- NOTE | 2020-06-14 07:04 | NUR ---
TELE/RN CLOSING NOTES: PATIENT REMAINS IN BED RESTING. PATIENT IS A/OX 2. BREATHING EVEN AND UNLABORED. NO SOB NOTED. NO S/S OF DISTRESS. NO C/O PAIN AT THIS TIME. REMAINED STABLE FOR THE REST OF THE NIGHT. TELE READING ST 104. IV ACCESS ON LEFT AC #20G SL.PATENT AND FLUSHED WELL SAFETY MEASURES ARE IN PLACE, BED IS LOCKED AND PLACED IN THE LOW POSITION, SIDE RAILS UP X 2, BED ALARM ON. CALL LIGHT IS WITHIN REACH. ALL DUE MEDS GIVEN ORDERED. NO FEVER. ALL NURSING NEEDS MET AND RENDERED. WILL ENDORSE TO DAY SHIFT FOR [place].
--- NOTE | 2020-06-14 07:30 | NUR ---
INSIDE TRUCKER NOTES PT IN BED, AWAKE, ALERT AND ORIENTED, NO COMPLAINT OF PAIN OR ANY DISCOMFORT, RESPIRATIONS NORMAL, CALL LIGHT WITHIN REACH, KEPT MANAGER BEVERAGE BED.
[2020-06-14 07:49] LABS: CALCIUM, SERUM 8.2 mg/dL (8.5-10.1); MAGNESIUM 1.8 mg/dL (1.8-2.4); PHOSPHORUS 2.8 mg/dL (2.5-4.9); POTASSIUM 3.2 mmol/L (3.5-5.1)
[2020-06-14 07:59] LABS: BASOPHILS % (AUTO) 0.3 % (0.0-2.0); HEMATOCRIT 24 % (33-45); HEMOGLOBIN 7.9 g/dL (11.5-14.8); LYMPHOCYTES # (AUTO) 0.6 /CMM (0.8-4.8); LYMPHOCYTES % (AUTO) 21.4 % (20.0-44.0); MEAN CORPUSCULAR HGB CONC 32 g/dl (31.0-36.0); MEAN CORPUSCULAR VOLUME 85 fL (82-100); MONOCYTES # (AUTO) 0.6 /CMM (0.1-1.30); MONOCYTES % (AUTO) 21.3 % (2.0-12.0); NEUTROPHILS # (AUTO) 1.4 /CMM (1.8-8.9); PLATELET COUNT (AUTO) 129 /CMM (150-450); RED BLOOD CELL COUNT(AUTO) 2.85 MIL/uL (4.0-5.2); WHITE BLOOD COUNT (AUTO) 2.6 K/uL (4.3-11.0)
[2020-06-14] MEDS: BENZTROPINE MESYLATE (1 MG) 1 MG TABLET PO SCH (08:23)
[2020-06-14] MEDS: QUETIAPINE FUMARATE 100 MG TABLET PO SCH ×2 (08:24→17:39)
[2020-06-14] MEDS: DOCUSATE SODIUM 100 MG CAPSULE PO SCH (08:24)
[2020-06-14] MEDS: PANTOPRAZOLE 40 MG TABLET.DR PO SCH (08:24)
[2020-06-14] MEDS: CEFEPIME 2 GM in IV D5W 100 ML IV SCH ×2 (08:28→21:39)
[2020-06-14 09:17] LABS: BAND % (MANUAL) 1 % (0.0-5.0); EOSINOPHILS % (MANUAL) 2 % (0-4); LYMPHOCYTES % (MANUAL) 26 % (16-48); MONOCYTES % (MANUAL) 15 % (0-11.0); MYELOCYTES % 2 % (0-0); NEUTROPHILS % (MANUAL) 54 (42-76)
[2020-06-14] MEDS ORDERED: POTASSIUM CHLORIDE 20 MEQ TAB.PRT.SR PO ONE (09:30)
--- NOTE | 2020-06-14 12:00 | NUR ---
HIV PREVENTION SPECIALIST NOTES PT IN BED, AWAKE, ALERT AND ORIENTED, NO COMPLAINT AT THIS TIME, SEEN BY DR. ALMEIDA, PLAN OF CARE DISCUSSED WITH PT, VERBALIZED UNDERSTANDING, WITH VERY MINIMAL BLEEDING NOTED, CALL LIGHT WITHIN REACH, ORDERS RECEIVED FOR I UNIT PRBC TRANSFUSION, PT INFORMED AND CONSENT GIVEN.
[2020-06-14] MEDS: MAG HYDROX/AL HYDROX/SIMETH 30 ML UDC PO PRN (13:11)
--- NOTE | 2020-06-14 16:00 | NUR ---
TELEPHONE ORDER SUPERVISOR NOTES PT IN BED, AWAKE, ALERT AND ORIENTED, HAVING SNACK, BLOOD TRANSFUSION ONGOING, TOLERATING WELL, NO ADVERSE REACTION NOTED, VITAL SIGNS STABLE, BEDSIDE REPORT GIVEN TO LIZANDRO RN FOR CONTINUITY OF CARE.
[2020-06-14] MEDS: HYDROCODONE/APAP 5/325MG TABLET PO PRN (17:39)
--- NOTE | 2020-06-14 17:41 | NUR ---
RN NOTES PT BLOOD TRANSFUSION OF 1 BAG PRBC 317 ML JUST FINISHED. NO ALLERGIC /ADVERSE REACTIONS NOTED. V/S TAKEN STABLE AND RECORDED. WILL CONTINUE TO MONITOR.
[2020-06-14] MEDS: SOD FERRIC GLUC 125 MG in IV NS 0.9% 100 ML IV SCH (17:49)
[2020-06-14] MEDS: VANCOMYCIN 1.5 GM in IV D5W 500 ML IV SCH (19:26)
--- NOTE | 2020-06-14 19:28 | NUR ---
TELE/RN CLOSING NOTES: PATIENT IN BED AWAKE AT THIS TIME. A/OX 2-3. VERBALLY RESPONSIVE. BREATHING EVEN AND UNLABORED ON ROOM AIR, NO SOB NOTED. NO S/S OF DISTRESS. TELE-MONITORING READING NSR-ST WITH HR-90-110, NO C/O OF CARDIAC DISTRESS VOICED. IV SL ON LEFT AC #20G PATENT AND INTACT. ALL NEEDS AND CARE ATTENDED WELL. SAFETY MEASURES ARE IN PLACE: BED IS LOCKED AND PLACED IN THE LOW POSITION, SIDE RAILS UP X 2, BED ALARM ON. CALL LIGHT IS WITHIN REACH. ENDORSED TO LOAN REVIEW OFFICER NURSE TREVOR FOR [place].
--- NOTE | 2020-06-14 19:38 | NUR ---
AMERICAN HISTORY TEACHER OPENING NOTES PATIENT AWAKE IN BED. A/OX3. ON 2L NC. NO S/S OF ACUTE RESPIRATORY DISTRESS; BREATHING IS EVEN AND UNLABORED. PATIENT DENIES ANY PAIN AT THIS TIME. TELE MONITOR READING SINUS RHYTHM, HEART RATE 92. IV PRESENT ON LEFT AC, SIZE 20, INTACT & PATENT. SAFETY MEASURES IN PLACE AND PATIENT'S NEEDS MET. BED LOCKED, SIDE RAILS X2, CALL LIGHT WITHIN REACH. WILL CONTINUE TO MONITOR.
[2020-06-14 20:11] LABS: HEMOGLOBIN 8.6 g/dL (11.5-14.8)
[2020-06-15] VITALS: BP 141/79
[2020-06-15] MEDS: ACETAMINOPHEN 325 MG TABLET PO PRN (01:42)
[2020-06-15 04:00] VITALS: BP 117/73
[2020-06-15] MEDS: PANTOPRAZOLE 40 MG TABLET.DR PO SCH (06:39)
[2020-06-15 07:04] LABS: CALCIUM, SERUM 8.6 mg/dL (8.5-10.1); CREATININE 0.9 mg/dL (0.6-1.3); POTASSIUM 3.5 mmol/L (3.5-5.1)
--- NOTE | 2020-06-15 07:09 | NUR ---
WOODWORK TEACHER CLOSING NOTES PATIENT AWAKE IN BED. A/OX3. ON 2L NC. NO S/S OF ACUTE RESPIRATORY DISTRESS; BREATHING IS EVEN AND UNLABORED. NO C/O PAIN AT THIS TIME. TELE MONITOR READING SINUS TACH, HEART RATE 106. IV PRESENT ON LEFT AC, SIZE 20, INTACT & PATENT WITH NS RUNNING TKO. SAFETY MEASURES IN PLACE AND PATIENT'S NEEDS MET. BED LOCKED, SIDE RAILS X2, CALL LIGHT WITHIN REACH. WILL ENDORSE TO DAY SHIFT RN PLAN OF CARE.
[2020-06-15 08:00] VITALS: BP 118/80
--- NOTE | 2020-06-15 08:00 | NUR ---
SITE OPERATIONS MANAGER OPENING NOTES PATIENT AWAKE IN BED. A/OX3. ON 2L NC. NO S/S OF ACUTE RESPIRATORY DISTRESS; BREATHING IS EVEN AND UNLABORED. PATIENT DENIES ANY PAIN AT THIS TIME. TELE MONITOR READING SINUS TACH, HEART RATE 109. IV PRESENT ON LEFT AC, SIZE 20, INTACT & PATENT. SAFETY MEASURES IN PLACE AND PATIENT'S NEEDS MET. BED LOCKED, SIDE RAILS X2, CALL LIGHT WITHIN REACH. WILL CONTINUE TO MONITOR.
[2020-06-15] MEDS: VANCOMYCIN 1.5 GM in IV D5W 500 ML IV SCH (08:16)
[2020-06-15] MEDS: BENZTROPINE MESYLATE (1 MG) 1 MG TABLET PO SCH (08:17)
[2020-06-15] MEDS: QUETIAPINE FUMARATE 100 MG TABLET PO SCH ×2 (08:17→16:38)
[2020-06-15] MEDS: DOCUSATE SODIUM 100 MG CAPSULE PO SCH (08:17)
[2020-06-15 08:31] LABS: BASOPHILS % (AUTO) 0.4 % (0.0-2.0); EOSINOPHILS % (AUTO) 1.7 % (0.0-6.0); HEMATOCRIT 29 % (33-45); HEMOGLOBIN 9.2 g/dL (11.5-14.8); LYMPHOCYTES # (AUTO) 0.7 /CMM (0.8-4.8); LYMPHOCYTES % (AUTO) 20.3 % (20.0-44.0); MEAN CORPUSCULAR HGB CONC 32 g/dl (31.0-36.0); MEAN CORPUSCULAR VOLUME 86 fL (82-100); MONOCYTES # (AUTO) 0.7 /CMM (0.1-1.30); MONOCYTES % (AUTO) 19.3 % (2.0-12.0); NEUTROPHILS # (AUTO) 2.1 /CMM (1.8-8.9); NEUTROPHILS % (AUTO) 58.3 % (43.0-81.0); PLATELET COUNT (AUTO) 155 /CMM (150-450); RED BLOOD CELL COUNT(AUTO) 3.34 MIL/uL (4.0-5.2); WHITE BLOOD COUNT (AUTO) 3.5 K/uL (4.3-11.0)
--- NOTE | 2020-06-15 10:50 | NUR ---
PT KEEPS GOING TO THE TOILET FREQUENTLY DELAYING THE IV INFUSION OF VANCO IV.
--- NOTE | 2020-06-15 11:14 | NUR ---
PT IS WALKING WITH P.T. DELAYING THE INFUSION OF VANCO IV.UNHOOKED PT FROM THE VANCO IV
--- NOTE | 2020-06-15 12:03 | NUR ---
PT'S IV H/L TO LT AC GOT INFILTRATED AND NEEDS TO BE REPLACED AND PT WANTS TO EAT HER LUNCH FIRST BEFORE INSERTING A NEW IV INSPITE OF EXPLAINING THAT SHE NEEDS TO HAVE HER IV ATB ADMINISTERED, PT INSISTS TO HAVE IV H/L INSERTED AFTER SHE IS DONE EATING HER LUNCH.
--- NOTE | 2020-06-15 12:57 | NUR ---
ATTEMPTED 3X TO INSERT IV HEPLOCK AND PT IS A HARDSTICK.NOTIFIED AMBER BRITO AND AWAITING FOR ORDER.
--- NOTE | 2020-06-15 13:00 | NUR ---
NOTIFIED DR ALMEIDA OF PT NEEDING MIDLINE DUE TO BEING HARDSTICK AND SEVERAL ATTEMPTS (3X) WERE MADE. JYOTHI RUBIO RN WAS HERE AND WAS ABLE TO INSERT MIDLINE IN DADI GAUGE 18.PT TOLERATED WELL. RESUMED PT'S VANCO IV ADMINISTRATION.
[2020-06-15] MEDS: CEFEPIME 2 GM in IV D5W 100 ML IV SCH (14:24)
[2020-06-15] MEDS ORDERED: QUET100T PO (14:54)
[2020-06-15] MEDS ORDERED: MICO1KIT10 VG (14:54)
[2020-06-15] MEDS ORDERED: CEFE2FRO IV (14:54)
[2020-06-15] MEDS ORDERED: VANC1PLA9 IV (14:54)
--- NOTE | 2020-06-15 15:21 | NUR ---
PT. REFUSED FOR XRAY BONE SURVEY, MARY MUNOZ IS AWARE.
--- NOTE | 2020-06-15 15:37 | NUR ---
PT REFUSED BONE OF THE WHOLE BODY SAYING SHE HAD SEVERAL XRAYS IN THE PAST AND UP TO THE PRESENT SO SHE IS TIRED OF IT.
--- NOTE | 2020-06-15 15:39 | NUR ---
PT INSISTS TO REFUSED BONE XRAY SURVEY OF THE WHOLE BODY INSPITE OF EXPLAINING THE RISKS AND BENEFITS.
[2020-06-15 16:00] VITALS: BP 142/74
[2020-06-15] MEDS ORDERED: INFLUENZA VACCINE 2020-21 0.5 ML DISP.SYRIN IM ONE (16:00)
--- NOTE | 2020-06-15 18:00 | NUR ---
CALLED IN REPORT TO KEIRARN CERTIFIED TOWER CLIMBER OF [facility] . CALLED THE [facility] AND SPOKE TO SAM WHO WILL PATENT LEGAL ASSISTANT THE PT AT [address]. DISCHARGE INSTRUCTIONS AND MED TEACHING GIVEN TO THE PT.ADDI MIDLINE DRESSING REMAINS CLEAN,DRY AND PATENT FOR CONTINUATION OF IV ATB VANCO AND MAXIPIME FOR 5 DAYS.CALLED PT'S NIECE AD SISTER,MARIO AND INFORMED THEM ABOUT THE PT'S TRANSFER. ALSO SPOKE TO MAY,JUNIOR BUSINESS ANALYST OF [facility] . PT IS AWAITING TO BE PICKED UP.
--- NOTE | 2020-06-15 19:44 | NUR ---
DISCHARGED PT TO [facility] VIA AMBULANCE WITH STABLE V/S.ADDI MIDLINE REMAINS INTACT AND PATENT.PT DENIES ANY PAIN OR DISTRESS.
== END 2020-06-15 20:00 | DRG 871 ==
LOC: ER 15:48 → TELE2 22:22 → TELE 06-09 17:10
PROVIDERS: ADMIT Family Medicine; ATTEND Nurse Practitioner Acute Care
PROC: 30233N1 Transfusion of Nonautologous Red Blood Cells into Peripheral Vein, Percutaneous Approach (ICD-10-PCS; principal; 2020-06-08)
PROC: 0DB68ZX Excision of Stomach, Via Natural or Artificial Opening Endoscopic, Diagnostic (ICD-10-PCS; 2020-06-12)
DX: A41.9 Sepsis, unspecified organism (principal); J18.9 Pneumonia, unspecified organism; E43 Unspecified severe protein-calorie malnutrition; N17.0 Acute kidney failure with tubular necrosis; C56.9 Malignant neoplasm of unspecified ovary; E87.1 Hypo-osmolality and hyponatremia; D61.818 Other pancytopenia; C16.9 Malignant neoplasm of stomach, unspecified; D68.9 Coagulation defect, unspecified; J90 Pleural effusion, not elsewhere classified; N39.0 Urinary tract infection, site not specified; R18.8 Other ascites; Z16.21 Resistance to vancomycin; D63.0 Anemia in neoplastic disease; I10 Essential (primary) hypertension; Z68.37 Body mass index [BMI] 37.0-37.9, adult; D47.2 Monoclonal gammopathy; E86.1 Hypovolemia; E88.09 Other disorders of plasma-protein metabolism, not elsewhere classified; F29 Unspecified psychosis not due to a substance or known physiological condition; K29.70 Gastritis, unspecified, without bleeding; F31.9 Bipolar disorder, unspecified; R50.81 Fever presenting with conditions classified elsewhere; Z79.01 Long term (current) use of anticoagulants; D70.9 Neutropenia, unspecified; R73.9 Hyperglycemia, unspecified; Z79.1 Long term (current) use of non-steroidal anti-inflammatories (NSAID); K26.9 Duodenal ulcer, unspecified as acute or chronic, without hemorrhage or perforation; B95.2 Enterococcus as the cause of diseases classified elsewhere
CPT/HCPCS: 36415; 70450-TC; 71045-TC; 76856-TC; 80048-TC; 80053-TC; 80061-TC; 80076-TC; 80202-TC; 81001; 82232; 82728-TC; 82784; 83540-TC; 83605-TC; 83735-TC; 83880; 84100-TC; 84155; 84165; 84484-TC; 84703-TC; 85025-TC; 85027-TC; 85396; 85610-TC; 85730-TC; 86304; 86334; 86850-TC; 87040-TC; 87081-TC; 87086-TC; 87186-TC; 88305-TC; 88313-TC; 88342; 93307-TC; 97110-TC; 97116-TC; 97530-TC; G0378; J0692; J1170; J2405; J2543; J2704; J2916; J3010; J3370; J7030; J7040; J7050; J7060; P9016-BL; Q2036; Q9967; U0003